=== PATIENT | female | born 1995 | race Caucasian/White ===

== ENCOUNTER 2023-09-02 18:24 | Emergency (ER) | payer MEDICAID ==
[~2023-09-02] VITALS: Ht 154.9 cm; Wt 77.2 kg
[2023-09-02 18:47] VITALS: BP 114/88; PULSE 76; RESP 18; TEMP 97.7; O2SAT 98
[2023-09-02] MEDS ORDERED: ONDANSETRON 4 MG/2 ML VIAL IVP ONE (19:45)
[2023-09-02] MEDS ORDERED: NACL 0.9% 1,000 ML IV ONE (19:45)
[2023-09-02 20:32] LABS: APPEARANCE,URINE CLEAR (CLEAR); BILIRUBIN,URINE 2+ (NEGATIVE); BLOOD, URINE NEGATIVE (NEGATIVE); COLOR,URINE YELLOW (YELLOW); LEUKOCYTE ESTERASE ,URINE NEGATIVE (NEGATIVE); NITRITE, URINE NEGATIVE (NEGATIVE); PROTEIN,URINE 2+ (NEGATIVE); UGLUCOSE NEGATIVE (NEGATIVE); UROBILINOGEN,URINE 0.2 EU/dL (0.2 - 1)
[2023-09-02 20:37] LABS: BACTERIA,URINE 1+ /HPF (None Seen); MUCUS,URINE 2+ /LPF (None Seen); RBC,URINE 0-5 /HPF (0-5); SQUAMOUS EPITHELIAL CELL,UR 50-80 /LPF (0-3 (FEW)); TRICHOMONAS,URINE None Seen /HPF (None Seen); WBC,URINE 0-5 /HPF (0-5); YEAST,URINE None Seen /HPF (None Seen)
[2023-09-02 20:39] LABS: ICTOTEST NEGATIVE (NEGATIVE)
[2023-09-02 20:59] LABS: BASOPHILS % (AUTO) 0.2 % (0.0-2.0); EOSINOPHILS # (AUTO) 0.1 K/uL (0-0.4); EOSINOPHILS % (AUTO) 0.8 % (0.0-4.0); HEMATOCRIT 44.7 % (36-48); HEMOGLOBIN 15.2 g/dL (12.0-16.0); LYMPHOCYTES # (AUTO) 2.1 K/uL (2.5-16.5); LYMPHOCYTES % (AUTO) 18.2 % (20.5-51.1); MEAN CORPUSCULAR HEMOGLOBIN 30 pg (27-31); MEAN CORPUSCULAR HGB CONC 34 g/dL (33-37); MONOCYTES # (AUTO) 0.7 K/uL (0.8-1.0); MONOCYTES % (AUTO) 6.2 % (1.7-9.3); NEUTROPHILS # (AUTO) 8.5 K/uL (1.8-7.7); NEUTROPHILS % (AUTO) 74.6 % (42.2-75.2); PLATELET COUNT (AUTO) 282 K/uL (140-450); RED BLOOD CELL COUNT(AUTO) 5.14 MIL/uL (4.20-5.40); WHITE BLOOD COUNT (AUTO) 11.4 K/uL (4.8-10.8)
[2023-09-02 21:13] LABS: ALBUMIN 4.5 g/dL (3.4-5.0); ANION GAP 18.4 (8-16); CALCIUM 9.7 mg/dL (8.5-10.1); CARBON DIOXIDE 23.2 mmol/L (21-32); CREATININE 0.9 mg/dL (0.6-1.3); POTASSIUM 3.6 mmol/L (3.5-5.1); TOTAL BILIRUBIN 0.8 mg/dL (0.0-1.0); TOTAL PROTEIN, SERUM 8.6 g/dL (6.4-8.2)
[2023-09-02] MEDS ORDERED: DOXY1TCP PO (22:32)
[2023-09-02] MEDS ORDERED: ONDA-188 PO (22:32)
[2023-09-02] MEDS ORDERED: ACET-10509 PO (22:32)
[2023-09-02] MEDS ORDERED: PNV1TABL5 PO (22:32)
[2023-09-02 22:50] VITALS: BP 117/77; PULSE 63; RESP 13; TEMP 98; O2SAT 98
== END 2023-09-02 22:50 | disposition home or self-care (01) ==
LOC: MED 18:24
DX: O21.0 Mild hyperemesis gravidarum (principal); O99.321 Drug use complicating pregnancy, first trimester; F12.90 Cannabis use, unspecified, uncomplicated; Z3A.01 Less than 8 weeks gestation of pregnancy; Z86.69 Personal history of other diseases of the nervous system and sense organs; Z79.899 Other long term (current) drug therapy; Z88.0 Allergy status to penicillin
CPT/HCPCS: 36415; 76801; 80053; 81001; 81025; 84702; 85025; 96361; 96374; 99285; J2405; J7030

== ENCOUNTER 2023-09-04 13:51 | Emergency (ER) | payer MEDICAID ==
[~2023-09-04] VITALS: Ht 154.9 cm; Wt 81.6 kg
[~2023-09-04 13:51] MED LIST: ACET-10509 PO; DOXY1TCP PO; ONDA-188 PO; PNV1TABL5 PO
[2023-09-04 14:03] VITALS: BP 122/78; PULSE 67; RESP 14; TEMP 99.2; O2SAT 100; O2SAT 70
[2023-09-04] MEDS ORDERED: NACL 0.9% 1,000 ML IV ONE (14:35)
[2023-09-04] MEDS ORDERED: METOCLOPRAMIDE 10 MG/2 ML INJ VIAL IVP ONE (14:35)
[2023-09-04 14:43] LABS: APPEARANCE,URINE SLIGHTLY CLOUDY (CLEAR); BILIRUBIN,URINE NEGATIVE (NEGATIVE); BLOOD, URINE NEGATIVE (NEGATIVE); COLOR,URINE YELLOW (YELLOW); LEUKOCYTE ESTERASE ,URINE NEGATIVE (NEGATIVE); NITRITE, URINE NEGATIVE (NEGATIVE); PROTEIN,URINE 2+ (NEGATIVE); UGLUCOSE NEGATIVE (NEGATIVE); UROBILINOGEN,URINE 0.2 EU/dL (0.2 - 1)
[2023-09-04 15:02] LABS: BASOPHILS % (AUTO) 0.4 % (0.0-2.0); EOSINOPHILS % (AUTO) 0.1 % (0.0-4.0); HEMATOCRIT 40.3 % (36-48); HEMOGLOBIN 13.6 g/dL (12.0-16.0); LYMPHOCYTES # (AUTO) 1.6 K/uL (2.5-16.5); LYMPHOCYTES % (AUTO) 13.1 % (20.5-51.1); MEAN CORPUSCULAR HEMOGLOBIN 29 pg (27-31); MEAN CORPUSCULAR HGB CONC 34 g/dL (33-37); MEAN CORPUSCULAR VOLUME 86.4 fL (80-94); MONOCYTES # (AUTO) 0.6 K/uL (0.8-1.0); MONOCYTES % (AUTO) 4.7 % (1.7-9.3); NEUTROPHILS # (AUTO) 9.7 K/uL (1.8-7.7); NEUTROPHILS % (AUTO) 81.7 % (42.2-75.2); PLATELET COUNT (AUTO) 258 K/uL (140-450); RED BLOOD CELL COUNT(AUTO) 4.66 MIL/uL (4.20-5.40); RED CELL DISTRIBUTION WIDTH 12.9 % (11.6-13.7); WHITE BLOOD COUNT (AUTO) 11.9 K/uL (4.8-10.8)
[2023-09-04 15:33] LABS: ALBUMIN 4.2 g/dL (3.4-5.0); ANION GAP 18.3 (8-16); CALCIUM 9.5 mg/dL (8.5-10.1); CARBON DIOXIDE 19.7 mmol/L (21-32); CREATININE 0.8 mg/dL (0.6-1.3); TOTAL BILIRUBIN 0.8 mg/dL (0.0-1.0); TOTAL PROTEIN, SERUM 7.8 g/dL (6.4-8.2)
[2023-09-04] MEDS ORDERED: PYRI-218 PO (16:08)
[2023-09-04 16:25] VITALS: BP 117/71; PULSE 71; RESP 18; TEMP 97.6; O2SAT 100
== END 2023-09-04 16:25 | disposition home or self-care (01) ==
LOC: MED 13:51
DX: O21.0 Mild hyperemesis gravidarum (principal); Z3A.01 Less than 8 weeks gestation of pregnancy; Z88.0 Allergy status to penicillin; Z79.899 Other long term (current) drug therapy
CPT/HCPCS: 36415; 80053; 81003; 83690; 84702; 85025; 96361; 96374; 99283; J2765; J7030

== ENCOUNTER 2024-04-29 09:05 | Emergency (ER) | payer OTHER ==
[~2024-04-29] VITALS: Ht 154.9 cm; Wt 63.5 kg
[~2024-04-29 09:05] MED LIST changes: +PYRI-218 PO
[2024-04-29 09:13] VITALS: BP 108/66; PULSE 76; RESP 18; TEMP 98.2; O2SAT 96
[2024-04-29 09:50] VITALS: BP 108/66; PULSE 76; RESP 18; TEMP 98.2; O2SAT 96
== END 2024-04-29 09:50 | disposition home or self-care (01) ==
LOC: MED 09:05
DX: S63.502A Unspecified sprain of left wrist, initial encounter (principal); F12.90 Cannabis use, unspecified, uncomplicated; Z86.69 Personal history of other diseases of the nervous system and sense organs; Z79.1 Long term (current) use of non-steroidal anti-inflammatories (NSAID); Z79.899 Other long term (current) drug therapy; Z88.0 Allergy status to penicillin; V43.62XA Car passenger injured in collision with other type car in traffic accident, initial encounter; Y93.89 Activity, other specified; Y92.89 Other specified places as the place of occurrence of the external cause; Y99.8 Other external cause status
CPT/HCPCS: 73110; 99283

== ENCOUNTER 2024-08-07 00:55 | Emergency (ER) | payer OTHER ==
[~2024-08-07] VITALS: Ht 154.9 cm; Wt 63.5 kg
[~2024-08-07 00:55] MED LIST changes: -ACET-10509 PO; +ACET500T99 PO
[2024-08-07 01:12] VITALS: BP 112/71; PULSE 88; RESP 16; TEMP 98.9; O2SAT 95
[2024-08-07 02:10] LABS: APPEARANCE,URINE CLEAR (CLEAR); BILIRUBIN,URINE NEGATIVE (NEGATIVE); BLOOD, URINE NEGATIVE (NEGATIVE); COLOR,URINE YELLOW (YELLOW); LEUKOCYTE ESTERASE ,URINE NEGATIVE (NEGATIVE); NITRITE, URINE NEGATIVE (NEGATIVE); PROTEIN,URINE NEGATIVE (NEGATIVE); UGLUCOSE NEGATIVE (NEGATIVE); UROBILINOGEN,URINE 0.2 EU/dL (0.2 - 1)
[2024-08-07 04:10] VITALS: BP 112/71; PULSE 88; RESP 16; TEMP 98.9; O2SAT 95
== END 2024-08-07 04:10 | disposition home or self-care (01) ==
LOC: MED 00:55
DX: N83.202 Unspecified ovarian cyst, left side (principal); Z86.69 Personal history of other diseases of the nervous system and sense organs; Z98.890 Other specified postprocedural states; Z79.899 Other long term (current) drug therapy; Z88.0 Allergy status to penicillin
CPT/HCPCS: 76856; 81003; 99284; Q0092